=== PATIENT | female | born 1980 | race Caucasian/White ===

== ENCOUNTER 2017-02-15 23:19 | Emergency (ER) | payer OTHER ==
[~2017-02-15] VITALS: Ht 162.6 cm; Wt 65.8 kg
[2017-02-16 00:08] LABS: BASO % 0 % (0-3); EOS # 0.1 x10^3/uL (0.0-0.7); EOS % 1 % (0-3); HEMATOCRIT 43.9 % (36.0-47.0); LYMPH % 32 % (24-48); MEAN CORPUSCULAR HEMOGLOBIN 29 pg (25-35); MEAN CORPUSCULAR HGB CONC 34 g/dL (31-37); MEAN CORPUSCULAR VOLUME 85 fL (79-100); MONO # 0.3 x10^3/uL (0.0-1.1); MONO % 5 % (0-9); NEUT # 3.8 x10^3uL (1.8-7.7); NEUT % 62 % (31-73); PLATELET COUNT 265 x10^3/uL (140-400); RED BLOOD COUNT 5.15 x10^6/uL (3.50-5.40); RED CELL DISTRIBUTION WIDTH 12.9 % (11.5-14.5); WHITE BLOOD COUNT 6.1 x10^3/uL (4.0-11.0)
[2017-02-16 00:10] LABS: ALBUMIN 4.4 g/dL (3.4-5.0); ALBUMIN/GLOBULIN RATIO 1.4 (1.0-1.7); CALCIUM 9.5 mg/dL (8.5-10.1); CREATININE 0.7 mg/dL (0.6-1.0); GFR 95.2; POTASSIUM 3.5 mmol/L (3.5-5.1); TOTAL BILIRUBIN 0.4 mg/dL (0.2-1.0); TOTAL PROTEIN 7.6 g/dL (6.4-8.2)
[2017-02-16 00:28] LABS: BACTERIA,URINE FEW /HPF (0-FEW); BILIRUBIN,URINE NEG (NEG); CLARITY,URINE CLEAR; COLOR,URINE STRAW; GLUCOSE,URINE NEG (NEG); NITRITE,URINE NEG (NEG); RBC,URINE OCC /HPF (0-2); SQUAMOUS EPITHELIAL CELL,UR FEW /LPF; UROBILINOGEN,URINE 0.2 mg/dL (0.2 mg/dL); WBC,URINE OCC /HPF (0-4)
--- NOTE | 2017-02-16 00:36 | PHYS DOC ---
Past History Past Medical History: Other Past Surgical History: Alcohol Use: None Drug Use: None Adult General Chief Complaint Chief Complaint: RAPID HEART RATE HPI HPI Patient is a 36 year old F who presents with palpitations and shortness of breath. She also was noted to have sinus congestion and cough over the past 1-2 days. She feels that these symptoms are worse with activity and improved with rest. She does feel that her symptoms improved during her transportation via EMS without intervention. Over the past 3-4 days she has noted increased urinary frequency with mild discomfort. These symptoms are similar to her previous urinary tract infections. Review of Systems Review of Systems Constitutional: Denies fever or chills [] Eyes: Denies change in visual acuity, redness, or eye pain [] HENT: Negative except history of present illness Respiratory: Negative except history of present illness Cardiovascular: No additional information not addressed in HPI [] GI: Denies abdominal pain, nausea, vomiting, bloody stools or diarrhea [] : Negative except history of present illness Musculoskeletal: Denies back pain or joint pain [] Integument: Denies rash or skin lesions [] Neurologic: Denies headache, focal weakness or sensory changes [] Endocrine: Denies polyuria or polydipsia [] Family History Family History Noncontributory Current Medications Current Medications Celebrex Allergies Allergies Allergies Coded Allergies Type Severity Reaction Last Updated Verified ascorbic acid Allergy Unknown 02/15/17 Yes glutamine Allergy Unknown 02/15/17 Yes herbal complex no. 124 Allergy Unknown 02/15/17 Yes hydrocodone Allergy Unknown 02/15/17 Yes lysine HCl Allergy Unknown 02/15/17 Yes jessica Allergy Unknown 02/15/17 Yes multivitamin with minerals Allergy Unknown 02/15/17 Yes Physical Exam Physical Exam Constitutional: Well developed, well nourished, no acute distress, non-toxic appearance. [] HENT: Normocephalic, atraumatic, mild nasal congestion, erythema and mucus noted bilaterally Eyes: EOMI, conjunctiva normal, no discharge. [] Neck: Normal range of motion, no tenderness, supple, no stridor. [] Cardiovascular:Heart rate regular rhythm, no murmur [] Lungs & Thorax: Bilateral breath sounds clear to auscultation [] Abdomen: Bowel sounds normal, soft, no tenderness, no masses, no pulsatile masses. [] Skin: Warm, dry, no erythema, no rash. [] Back: No tenderness, no CVA tenderness. [] Extremities: No tenderness, no cyanosis, no clubbing, ROM intact, no edema. [] Neurologic: Alert and oriented X 3, normal motor function, normal sensory function, no focal deficits noted. [] Psychologic: Affect normal, judgement normal, mood normal. [] Current Patient Data Vital Signs Vital Signs Date Time Temp Pulse Resp B/P (MAP) Pulse Ox O2 Delivery O2 Flow Rate FiO2 02/15/17 23:19 98.1 87 Room Air Lab Results Laboratory Tests Test 02/15/17 23:25 Sodium Level 141 mmol/L (136-145) Potassium Level 3.5 mmol/L (3.5-5.1) Chloride Level 107 mmol/L (98-107) Carbon Dioxide Level 19 mmol/L (21-32) L Anion Gap 15 (6-14) H Blood Urea Nitrogen 12 mg/dL (7-20) Creatinine 0.7 mg/dL (0.6-1.0) Estimated GFR (Cockcroft-Gault) 95.2 BUN/Creatinine Ratio 17 (6-20) Glucose Level 115 mg/dL (70-99) H Calcium Level 9.5 mg/dL (8.5-10.1) Total Bilirubin 0.4 mg/dL (0.2-1.0) Aspartate Amino Transferase (AST) 14 U/L (15-37) L Alanine Aminotransferase (ALT) 21 U/L (14-59) Alkaline Phosphatase 67 U/L (46-116) Troponin I Quantitative < 0.017 ng/mL (0-0.055) Total Protein 7.6 g/dL (6.4-8.2) Albumin 4.4 g/dL (3.4-5.0) Albumin/Globulin Ratio 1.4 (1.0-1.7) EKG EKG [] Radiology/Procedures Radiology/Procedures Imaging was declined Course & Med Decision Making Course & Med Decision Making Pertinent Labs and Imaging studies reviewed. (See chart for details) [] Dragon Disclaimer Dragon Disclaimer This chart was dictated in whole or in part using Voice Recognition software in a busy, high-work load, and often noisy Emergency Department environment. It may contain unintended and wholly unrecognized errors or omissions. Departure Departure: Impression: Primary Impression: Urinary tract bacterial infections Additional Impression: Upper respiratory infection Disposition: 01 HOME, SELF-CARE Condition: STABLE Patient Instructions: Upper Respiratory Infection, Adult, Urinary Tract Infection Additional Instructions: Felicitas was seen in emergency department for shortness of breath. No emergency medical condition was found on history or physical exam. She did have normal labs, with the exception of signs of urinary tract infection. She was started on antibiotics and was given a prescription for the duration of her course. She was also found to have signs and symptoms of an upper respiratory infection. She was strongly advised to use nasal saline rinses regularly and was given a prescription for nasal steroid spray. She is advised follow-up with her primary care doctor in the next week for further management. Scripts Fluticasone Propionate (Flonase Allergy Relief) 9.[address] [place]susp 1 SPRAYS NS BID for 7 Days, BOTTLE Prov: HAILEY TUCKER MD 02/16/17 Sulfamethoxazole/Trimethoprim (BACTRIM DS TABLET) 1 Each Tablet 1 TAB PO BID for 5 Days, #10 TAB Prov: HAILEY TUCKER MD 02/16/17 Problem Qualifiers Additional Impression: Upper respiratory infection URI type: unspecified URI Qualified Codes: J06.9 - Acute upper respiratory infection, unspecified HAILEY TUCKER MD Feb 16, 2017 00:36
[2017-02-16 00:39] LABS: INFLUENZA A PATIENT NEGATIVE (NEGATIVE); INFLUENZA B PATIENT NEGATIVE (NEGATIVE)
[2017-02-16] MEDS ORDERED: SULF1TAB24 PO (00:41)
[2017-02-16 00:44] VITALS: BP 129/56
[2017-02-16] MEDS ORDERED: SMZ/TMP 800/160MG TABLET. PO ONE (00:45)
[2017-02-16] MEDS ORDERED: FLUT9.9S NS (00:46)
== END 2017-02-16 01:00 | disposition home or self-care (01) ==
LOC: ER 23:19
DX: J06.9 Acute upper respiratory infection, unspecified (principal); N39.0 Urinary tract infection, site not specified; Z87.440 Personal history of urinary (tract) infections; Z88.5 Allergy status to narcotic agent; Z88.8 Allergy status to other drugs, medicaments and biological substances; Z91.018 Allergy to other foods
CPT/HCPCS: 36415; 80053; 81001; 84484; 85025; 87086; 87804; 99284

== ENCOUNTER 2017-09-13 17:21 | Emergency (ER) | payer OTHER ==
[~2017-09-13] VITALS: Ht 162.6 cm; Wt 65.8 kg
[~2017-09-13 17:21] MED LIST: FLUT9.9S NS; SULF1TAB24 PO
[2017-09-13 17:25] VITALS: BP 124/68
[2017-09-13] MEDS ORDERED: ONDA4TAB12 PO (18:10)
[2017-09-13] MEDS ORDERED: FAMOTIDINE 20 MG TABLET PO ONE (18:30)
[2017-09-13] MEDS ORDERED: ONDANSETRON ODT 4 MG TAB.RAPDIS PO ONE (18:30)
--- NOTE | 2017-09-29 11:16 | EKG ---
[address] [address] Test Date: 2017-09-13 Test Time: 17:29:51 Pat Name: SIDNEY KAPLAN Department: Room: Gender: F [employer] Helper: Darrylsilviano Ally : 1980 Requested By: RAFAEL SILVER Order Number: [id number] Reading MD: Dvein Farris MD Measurements Intervals [place] Rate: 97 P: 47 IL: 154 QRS: 41 QRSD: 88 T: 50 QT: 364 QTc: 467 Interpretive Statements SINUS RHYTHM QRS(T) CONTOUR ABNORMALITY CONSIDER ANTEROLATERAL MYOCARDIAL DAMAGE POSSIBLY ABNORMAL ECG RI6.01 No previous ECG available for comparison Electronically Signed On 09-29-2017 11:15:25 CDT by Devin Farris MD
== END 2017-09-13 18:22 | disposition home or self-care (01) ==
LOC: ER 17:21
DX: R00.2 Palpitations (principal); R11.0 Nausea; G89.29 Other chronic pain
CPT/HCPCS: 93005; 99283; Q0162

== ENCOUNTER → 2020-02-15 | Outpatient (CLI) | payer BC ==
[~2020-02-15] MED LIST changes: +IOHEXOL 240 MG/ML 50ML VIAL. PO ONE; +IOHEXOL 300 MG/ML 75 ML VIAL. IV ONE; +ONDA4TAB12 PO
[2020-02-15 10:23] LABS: BASO % 0 % (0-3); EOS % 0 % (0-3); HEMATOCRIT 43.1 % (36.0-47.0); HEMOGLOBIN 14.3 g/dL (12.0-15.5); LYMPH # 1.5 x10^3/uL (1.0-4.8); LYMPH % 21 % (24-48); MEAN CORPUSCULAR HEMOGLOBIN 29 pg (25-35); MEAN CORPUSCULAR HGB CONC 33 g/dL (31-37); MEAN CORPUSCULAR VOLUME 87 fL (79-100); MONO # 0.3 x10^3/uL (0.0-1.1); MONO % 4 % (0-9); NEUT # 5.4 x10^3uL (1.8-7.7); NEUT % 74 % (31-73); PLATELET COUNT 306 x10^3/uL (140-400); RED BLOOD COUNT 4.95 x10^6/uL (3.50-5.40); RED CELL DISTRIBUTION WIDTH 12.7 % (11.5-14.5); WHITE BLOOD COUNT 7.2 x10^3/uL (4.0-11.0)
[2020-02-15 10:26] LABS: ALBUMIN 4.1 g/dL (3.4-5.0); ALBUMIN/GLOBULIN RATIO 1.1 (1.0-1.7); ALK PHOS 76 U/L (46-116); ALT (SGPT) 24 U/L (14-59); ANION GAP 11 (6-14); AST (SGOT) 17 U/L (15-37); BLOOD UREA NITROGEN 11 mg/dL (7-20); BUN/CREATININE RATIO 14 (6-20); CALCIUM 8.9 mg/dL (8.5-10.1); CARBON DIOXIDE 25 mmol/L (21-32); CHLORIDE 104 mmol/L (98-107); CREATININE 0.8 mg/dL (0.6-1.0); GFR 80.3; GLUCOSE 96 mg/dL (70-99); SODIUM 140 mmol/L (136-145); TOTAL BILIRUBIN 0.5 mg/dL (0.2-1.0); TOTAL PROTEIN 7.9 g/dL (6.4-8.2)
[2020-02-15 10:34] LABS: C REACTIVE PROTEIN < 0.5 mg/L (0-3.3)
--- NOTE | 2020-02-15 11:08 | RAD ---
EXAM: Abdomen and pelvis CT with intravenous contrast. HISTORY: Pain. TECHNIQUE: Computed tomographic images of the abdomen and pelvis were obtained following the administration of intravenous contrast. Multiplanar reformatting was performed. *One or more of the following individualized dose reduction techniques were utilized for this examination: 1. Automated exposure control. 2. Adjustment of the mA and/or kV according to patient size. 3. Use of iterative reconstruction technique. COMPARISON: None. FINDINGS: Evaluation of the lower thorax demonstrates no infiltrate or pleural effusion. There is a 3 mm groundglass nodule within the lateral right lower lobe, likely benign based on size and density. There is minimal posterior dependent and basilar atelectasis. There is a 5 mm cyst within the lateral right hepatic lobe. There are 5 mm hypodense lesion within the anterior lateral right hepatic lobe which are too small to characterize. These are likely cysts. The gallbladder, pancreas, spleen, adrenal glands and kidneys are unremarkable. There is no appendicitis. There is no bowel obstruction. There is no abnormal bowel wall thickening. The bladder is unremarkable. There is a 1.7 cm peripherally enhancing right ovarian follicular cyst, likely an involuting cyst. There is a small amount of physiologic pelvic free fluid. There is a prominent endometrium. There is a 6 mm hyperdense lesion projecting into the endometrium which is best seen on coronal images (series 2, image 16). This may be a tiny polyp. There is no lymphadenopathy. There is no suspicious osseous lesion. IMPRESSION: 1. 1.7 cm physiologic involuting right ovarian follicular cyst and small amount of physiologic pelvic free fluid. 2. Tiny hypodense lesions within the liver. In the absence of known malignancy, these are likely cysts. 3. Tiny hypodense lesion within the endometrial cavity, possibly due to a polyp. This may be better assessed with a sonogram or saline sonohysterogram if there is clinical concern. 4. Tiny groundglass pulmonary nodule within the right lower lobe, likely benign based on size and density. Follow-up can be performed in one year if there are risk factors for pulmonary neoplasm. Electronically signed by: Anusha Barnett MD (02/15/2020 11:05 AM) [id number]
== END ==
LOC: CT 09:36
PROVIDERS: ATTEND Family Medicine
DX: N83.292 Other ovarian cyst, left side (principal); R91.1 Solitary pulmonary nodule
CPT/HCPCS: 36415; 74177; 80053; 85025; 86140; Q9967